=== PATIENT | female | born 1985 | race Caucasian/White ===

== ENCOUNTER 2020-02-06 15:18 | Emergency (ER) | payer MEDICAID, MEDICARE ==
[~2020-02-06] VITALS: Ht 162.6 cm; Wt 61.2 kg
--- NOTE | 2020-02-06 15:40 | NUR ---
PT WAS TRIAGED AND PLACED BACK IN ER WAITING ROOM. THERE ARE NO ER BEDS AVAILABLE AT THIS TIME.
--- NOTE | 2020-02-06 19:00 | NUR ---
Received report from Michael Newman RN for continuity of care. Patient came for c/o abd pain, states, "I think i am and it feels like i am about to give labor." Patient approximates that she is 9 months . A/Ox4, appears somewhat sedated as she keeps dosing off while trying to ask her questions. Patient pending blood work, and US.
[2020-02-06 19:19] LABS: *BILIRUBIN,URIN NEGATIVE (NEGATIVE); *BLOOD, URINE NEGATIVE (NEGATIVE); *CLARITY,URINE SLIGHTLY CLOUDY (CLEAR); *COLOR,URINE YELLOW (YELLOW); *KETONES,URINE NEGATIVE (NEGATIVE); *UROBILINOGEN,URINE 0.2 E.U./dl (NORMAL); LEUKOCYTE ESTERASE ,URINE NEGATIVE (NEGATIVE); NITRITE, URINE NEGATIVE (NEGATIVE); PH,URINE 6.5 (5.0-8.0); UGLUCOSE NEGATIVE (NEGATIVE)
[2020-02-06 19:20] LABS: *URINE HCG, QUAL POSITIVE (NEGATIVE)
--- NOTE | 2020-02-06 19:37 | NUR ---
Mara tech at bedside for imaging.
[2020-02-06 19:42] LABS: BASOPHILS # (AUTO) 0.1 K/uL (0.0-8.0); BASOPHILS % (AUTO) 0.5 % (0.0-2.0); EOSINOPHILS # (AUTO) 0.1 K/uL (0.0-0.7); EOSINOPHILS % (AUTO) 0.8 % (0.0-7.0); HEMATOCRIT 37.8 % (31.2-41.9); HEMOGLOBIN 12.3 g/dL (10.9-14.3); LYMPHOCYTES # (AUTO) 2.2 K/uL (20.0-40.0); LYMPHOCYTES % (AUTO) 19.8 % (20.5-51.5); MEAN CORPUSCULAR HEMOGLOBIN 28.8 uug (24.7-32.8); MEAN CORPUSCULAR HGB CONC 32 g/dL (32.3-35.6); MEAN CORPUSCULAR VOLUME 88.7 fL (75.5-95.3); MONOCYTES # (AUTO) 0.7 K/uL (2.0-10.0); NEUTROPHILS # (AUTO) 8.1 K/uL (1.8-8.9); NEUTROPHILS % (AUTO) 72.9 % (38.5-71.5); PLATELET COUNT (AUTO) 406 K/uL (179-408); RED BLOOD CELL COUNT(AUTO) 4.26 MIL/uL (3.63-4.92); WHITE BLOOD COUNT (AUTO) 11.2 K/uL (3.8-11.8)
[2020-02-06 19:47] LABS: CARBON DIOXIDE 24 mmol/L (21-32); CHLORIDE 102 mmol/L (98-107); CREATININE 0.5 mg/dL (0.6-1.3); GLUCOSE 80 mg/dL (74-106); POTASSIUM 3.7 mmol/L (3.5-5.1); UREA NITROGEN, BLOOD 10 mg/dL (7-18)
[2020-02-06 19:53] LABS: ALANINE AMINOTRANSFERASE 42 U/L (14-59); ALKALINE PHOSPHATASE 201 U/L (50-136); ASPARTATE AMINOTRANSFERASE 20 U/L (15-37); BILIRUBIN,DIRECT 0.1 mg/dL (0.0-0.2); BILIRUBIN,TOTAL 0.3 mg/dL (0.2-1.0); TOTAL PROTEIN, SERUM 6.6 g/dL (6.4-8.2)
--- NOTE | 2020-02-06 20:00 | NUR ---
According to Jeferson, processing technologist, COVID negative
--- NOTE | 2020-02-06 20:04 | NUR ---
According to Sandi from [facility], she states that their facility is overwhelmed at this time but accepts to review patient case. FAX: [phone]
--- NOTE | 2020-02-06 20:19 | NUR ---
Spoke to Milagros from OB triage @ [facility] [place] [facility], she is requesting that the US results be published in order to get a more definitive answer on how many weeks the patient is to determine whether or not patient qualifies for a transfer.
[2020-02-06 20:34] LABS: *AMPHETAMINE, URINE POSITIVE (NEGATIVE); *CANNABINOID, URINE NEGATIVE (NEGATIVE); *COCCAINE, URINE NEGATIVE (NEGATIVE); *OPIATE, URINE NEGATIVE (NEGATIVE); *PHENCYCLIDINE SCREEN,URINE NEGATIVE (NEGATIVE)
--- NOTE | 2020-02-06 21:07 | NUR ---
According to Dr. De Guzman, OB, from [facility], she accepts the patient and is requesting the patient be sent to OB triage.
--- NOTE | 2020-02-06 22:05 | NUR ---
Per Dr. Leon, he had given report to [facility]. Patient waiting for transport at this time.
--- NOTE | 2020-02-06 22:09 | NUR ---
Patient in bed resting on side, no acute distress noted at this time. Patient pending transport.
--- NOTE | 2020-02-06 22:30 | NUR ---
[facility] here to transport patient to [facility]. Patient A/Ox4. and is able to ambulate from bed to [facility]. Patient Tranfers to outside Facility Physician: Dr. De Guzman Location: [facility]- OB TRIAGE
== END 2020-02-06 22:32 | disposition short-term general hospital (02) ==
LOC: ER 15:21
DX: O26.893 Other specified pregnancy related conditions, third trimester (principal); R10.9 Unspecified abdominal pain; O99.323 Drug use complicating pregnancy, third trimester; F15.90 Other stimulant use, unspecified, uncomplicated; O99.343 Other mental disorders complicating pregnancy, third trimester; F99 Mental disorder, not otherwise specified; Z3A.32 32 weeks gestation of pregnancy; Z59.0 Homelessness; Z20.828 Contact with and (suspected) exposure to other viral communicable diseases
CPT/HCPCS: 36415; 76700; 84703; 85025; 85730; A4663